=== PATIENT | female | born 1975 | race Caucasian/White ===

== ENCOUNTER 2021-12-17 23:46 | Emergency (ER) | payer BC, SELFPAY ==
--- NOTE | 2021-12-17 23:54 | ECG_ITS ---
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 Measurements Intervals Newman Rate: 73 P: 64 CT: 174 QRS: 21 QRSD: 71 T: 48 QT: 381 QTc: 421 Interpretive Statements SINUS RHYTHM No previous ECG available for comparison Electronically Signed On 12-19-2021 22:01:47 CDT by Dusty Sylvester M.D. [email or web address]
[2021-12-18 00:01] VITALS: BP 164/100; PULSE 80; RESP 16; TEMP 36.6; O2SAT 98
[2021-12-18] MEDS: sodium chloride 0.9% 1,000 ML 999 ML IV (00:06)
--- NOTE | 2021-12-18 00:08 | CTR_ITS ---
PROCEDURE INFORMATION: Exam: CT Head Without Contrast Exam date and time: 12/18/2021 12:15 AM Age: 46 years old Clinical indication: Syncope and collapse TECHNIQUE: Imaging protocol: Computed tomography of the head without contrast. Radiation optimization: All CT scans at this facility use at least one of these dose optimization techniques: automated exposure control; mA and/or kV adjustment per patient size (includes targeted exams where dose is matched to clinical indication); or iterative reconstruction. COMPARISON: No relevant prior studies available. RADIATION DOSE METRICS: Total DLP (mGy-cm): 1199.89 FINDINGS: Brain: No acute intracranial hemorrhage or mass effect. No definite acute infarct by CT. MRI could be more sensitive/specific for detection, as clinically directed. Cerebral ventricles: Ventricle size is normal for age. Paranasal sinuses: Included paranasal sinuses are essentially clear. Mastoid air cells: No significant acute finding. Bones/joints: No definite acute skull fracture. Soft tissues: No significant acute finding. Vasculature: Mild vascular calcifications in the internal carotid arteries. CT/CT head wo con* [id number] IMPRESSION: 1. No acute intracranial hemorrhage or mass effect. 2. No definite acute infarct by CT, see above. 3. Other findings discussed above.
--- NOTE | 2021-12-18 00:09 | ED_ITS ---
HPI - Syncope General: Chief Complaint: Syncope Stated Complaint: SYNCOPAL Time Seen by Provider: 12/17/21 23:48 Source: patient and EMS Mode of arrival: EMS Limitations: no limitations History of Present Illness: 46-year-old female states that she has been under a lot of stress lately she states she does take sleeping pills every night trazodone states she take a trazodone tonight was laying watching TV and believes she passed out on the couch stated that she then got up walked into the kitchen her brother was there and she had a syncopal event again for roughly 30 seconds states that she had to use the bathroom and went to sit on the toilet and had a bowel movement and passed out again for roughly 1 minute. States this happened at 1030 states she feels improved currently she denies any chest pain or headache. Denies having syncope in the past. Associated symptoms: Deny abdominal pain, fever(s), headache(s) or nausea Review of Systems Const: Denies: fever(s), chills, body aches or change in appetite Eyes: Denies: blurry vision or eye discomfort ENMT: Denies: throat pain or dental pain Card: Reports: syncope Resp: Denies: dyspnea GI: Denies: abdominal pain, nausea, vomiting or diarrhea : Denies: dysuria Musc: Denies: neck pain or back pain Skin/Breast: Denies: rash Neuro: Denies: headache(s) Psych: Denies: depression Aden/Lymph: Denies: easy bruising All/Imm: Denies: urticaria PFS ED PFSH: Medical History (Updated 12/18/21 @ 01:41 by Mina Colin MD) No pertinent past medical history Social History (Updated 12/18/21 @ 00:11 by Mina Colin MD) Substance/Drug Use: never Female Reproductive History: Date of last menstrual period: 12/04/21 Physical Exam Const: COMMON NORMALS: no acute distress, patient oriented x3 and healthy appearing HENMT: COMMON NORMALS: normocephalic and atraumatic HEAD & SCALP: normocephalic and atraumatic Eye: COMMON NORMALS: Equal, round and reactive pupils present and EOMs intact bilaterally PUPIL: Yes Equal, round and reactive pupils present Neck/C-Spine: COMMON NORMALS: full ROM and supple Chest: COMMONS NORMALS: normal inspection of the chest and normal palpation of entire chest wall Resp: COMMON NORMALS: normal respiratory effort, No retractions, No use of accessory muscles and clear to auscultation bilaterally AUSCULTATION: clear to auscultation bilaterally Cardio: COMMON NORMALS: regular rate, regular rhythm and No murmurs present (Cardio) RATE: regular rate RHYTHM: regular rhythm GI: COMMON NORMALS: Normal to inspection, nondistended, normoactive bowel sounds present, Soft to palpation, non-tender and no masses PALPATION: Yes Soft to palpation Extremity: COMMON NORMALS: normal to inspection and full ROM Neuro: COMMON NORMALS: patient oriented x3, moves all extremities and no focal motor deficits Psych: COMMON NORMALS: mental status grossly normal, Normal thought process present and cooperative THOUGHT PROCESS: Normal thought process present Skin: COMMON NORMALS: no rashes or lesions noted and no wounds GENERAL SKIN EXAM: no rashes or lesions noted Course Vital Signs: Vital signs: Vital Signs Temperature 97.8 F 12/18/21 00:01 Pulse Rate 86 12/18/21 00:49 Respiratory Rate 25 H 12/18/21 00:49 Blood Pressure 145/91 12/18/21 00:49 Pulse Oximetry 99 12/18/21 00:49 MDM - Syncope Medical Decision Making Patient presents here after syncopal event could be related to her taking her trazodone or vagal response her head CT blood work here all normal she feels improved here she is able to ambulate. She is to follow-up with PCP and return if worsening she understands agrees plan. Lab Data : 12/18/21 00:10 12/18/21 00:[address] 12/18/21 00:08 IMPRESSION: 1. No acute intracranial hemorrhage or mass effect. 2. No definite acute infarct by CT, see above. 3. Other findings discussed above. Laboratory Results WBC 13.3 10^3/uL (4.0-10.0) H 12/18/21 00:10 RBC 4.30 10^6/uL (4.1-5.3) 12/18/21 00:10 Hgb 13.5 g/dL (11.5-15.3) 12/18/21 00:10 Hct 40.8 % (37.0-47.0) 12/18/21 00:10 MCV 94.9 fl (81-99) 12/18/21 00:10 MCH 31.4 pg (28.0-34.0) 12/18/21 00:10 MCHC 33.1 g/dL (30.0-36.0) 12/18/21 00:10 RDW 12.1 % (12.1-15.1) 12/18/21 00:10 Plt Count 281 10^3/cmm (130-400) 12/18/21 00:10 MPV 10.4 fL (7.4-10.4) 12/18/21 00:10 Neut % (Auto) 77.6 % 12/18/21 00:10 Lymph % (Auto) 14.7 % 12/18/21 00:10 [place] % (Auto) 6.0 % 12/18/21 00:10 Eos % (Auto) 0.8 % 12/18/21 00:10 Baso % (Auto) 0.4 % 12/18/21 00:10 Neut # (Auto) 10.32 10^3/uL (1.8-7.7) H 12/18/21 00:10 Lymph # (Auto) 2.0 10^3/uL (0.8-4.8) 12/18/21 00:10 [place] # (Auto) 0.8 10^3/uL (0.2-0.9) 12/18/21 00:10 Eos # (Auto) 0.1 10^3/uL (0.0-0.8) 12/18/21 00:10 Baso # (Auto) 0.1 10^3/uL (0.0-0.1) 12/18/21 00:10 Nucleated RBC % (auto) 0 % 12/18/21 00:10 Nucleated RBCs # 0.0 /100WBC 12/18/21 00:10 Sodium 138 mmol/L (136-145) 12/18/21 00:10 Potassium 3.4 mmol/L (3.5-5.1) L 12/18/21 00:10 Chloride 104 mmol/L (98-107) 12/18/21 00:10 Carbon Dioxide 24 mmol/L (22-29) 12/18/21 00:10 Anion Gap 13.4 (5-19) 12/18/21 00:10 BUN 8 mg/dL (6-20) 12/18/21 00:10 Creatinine 0.7 mg/dL (0.5-0.9) 12/18/21 00:10 GFR Calculation 89.3 mL/min (90-130) L 12/18/21 00:10 Glucose 136 mg/dL (65-115) H 12/18/21 00:10 Calculated Osmolality 286 mOsm/kg (285-295) 12/18/21 00:10 Calcium 8.8 mg/dL (8.5-10.5) 12/18/21 00:10 Total Bilirubin 0.5 mg/dL (0.15-1.2) 12/18/21 00:10 AST 24 U/L (0-32) 12/18/21 00:10 ALT 25 U/L (0-33) 12/18/21 00:10 Alkaline Phosphatase 70 U/L (35-105) 12/18/21 00:10 Total Protein 6.8 g/dL (6.6-8.7) 12/18/21 00:10 Albumin 4.0 g/dL (3.5-5.2) 12/18/21 00:10 Globulin 2.8 g/dL (1.3-4.6) 12/18/21 00:10 EKG Data EKG 1: I personally reviewed and interpreted this EKG as follows: EKG interpretation date: 12/18/21 EKG interpretation time: 00:01 Interpretation: nsr hr [address] or t wave abnormalities qrs 71 qtc 407 Discharge Plan Discharge Patient Disposition: Home Clinical Impression: Syncope Qualifiers: Syncope type: unspecified Qualified Code(s): R55 - Syncope and collapse Condition: Stable Discharge Orders: Discharge ED (Routine); Ordered 12/18/21 Ordered By: Mina Colin Discharge Diet: Advance as tolerated Discharge Activity: Resume usual activity Patient Instructions: Syncope (ED) Coding Level of Care Code ED Prepress Technician for Chg Fwd Exam Comprehensive
[2021-12-18 00:19] LABS: Basophils # 0.1 10^3/uL (0.0-0.1); Basophils % 0.4 %; Eosinophils # 0.1 10^3/uL (0.0-0.8); Eosinophils % 0.8 %; Hematocrit 40.8 % (37.0-47.0); Hemoglobin 13.5 g/dL (11.5-15.3); Lymphocytes % 14.7 %; Mean Corpuscular HGB Conc 33.1 g/dL (30.0-36.0); Mean Corpuscular Hemoglobin 31.4 pg (28.0-34.0); Mean Corpuscular Volume 94.9 fl (81-99); Mean Platelet Volume 10.4 fL (7.4-10.4); Monocytes # 0.8 10^3/uL (0.2-0.9); Neutrophils # 10.32 10^3/uL (1.8-7.7); Neutrophils % 77.6 %; Nucleated Red Blood Cells % 0 %; Platelet Count 281 10^3/cmm (130-400); Red Cell Distribution Width 12.1 % (12.1-15.1); White Blood Count 13.3 10^3/uL (4.0-10.0)
[2021-12-18 00:38] LABS: Alanine Aminotransferase 25 U/L (0-33); Alkaline Phosphatase 70 U/L (35-105); Anion Gap 13.4 (5-19); Aspartate Amino Transferase 24 U/L (0-32); Blood Urea Nitrogen 8 mg/dL (6-20); Calcium 8.8 mg/dL (8.5-10.5); Carbon Dioxide 24 mmol/L (22-29); Chloride 104 mmol/L (98-107); Globulin 2.8 g/dL (1.3-4.6); Glomerular Filtration Rate 89.3 mL/min (90-130); Glucose 136 mg/dL (65-115); Osmolality Calculated 286 mOsm/kg (285-295); Potassium 3.4 mmol/L (3.5-5.1); Sodium 138 mmol/L (136-145); Total Bilirubin 0.5 mg/dL (0.15-1.2); Total Protein 6.8 g/dL (6.6-8.7)
[2021-12-18 00:49] VITALS: BP 145/91; PULSE 86; RESP 25; O2SAT 99
== END 2021-12-18 02:13 | disposition home or self-care (01) ==
PROVIDERS: Emergency Provider Emergency Medicine
DX: R55 Syncope and collapse (principal)
CPT/HCPCS: 70450; 80053; 85025; 93005; 96360; 99285; J7030